=== PATIENT | male | born 1945 | race Caucasian/White ===

== ENCOUNTER 2018-05-03 17:31 | Observation (INO) | payer MEDICARE ==
[2018-05-03 18:27] LABS: Hemoglobin 11.6 g/dL (14.0-18.0); Mean Corpuscular Hemoglobin 31.7 pg (27.0-31.0); Mean Platelet Volume 7.4 fL (7.4-10.4); Platelet Count 314 thou/uL (130-400); RBC Distribution Width 12.3 % (11.5-14.5); Red Blood Cell (RBC) Count 3.66 mill/uL (4.70-6.10); White Blood Cell (WBC) Count 11.8 thou/uL (4.8-10.8)
[2018-05-03 18:32] LABS: PTT 27.8 SEC (22.9-36.1); Prothrombin Time 13.4 SEC (12.0-14.7)
[2018-05-03 18:36] LABS: ALT (SGPT) 23 U/L (8-55); AST (SGOT) 15 U/L (5-34); Albumin 4.1 g/dL (3.4-4.8); Alkaline Phosphatase 53 U/L (40-150); Anion Gap 19 mmol/L (10-20); BUN (Urea Nitrogen) 45 mg/dL (8.4-25.7); Bilirubin, Total 0.5 mg/dL (0.2-1.2); Calc. Creatinine Clearance 0 mL/min (70-130); Calcium 9.6 mg/dL (7.8-10.44); Carbon Dioxide 18 mmol/L (23-31); Chloride 98 mmol/L (98-107); Estimated GFR-MDRD 21; Globulin 2.7 g/dL (2.4-3.5); Glucose 168 mg/dL (83-110); Potassium 4.1 mmol/L (3.5-5.1); Protein, Total 6.8 g/dL (5.8-8.1); Sodium 131 mmol/L (136-145)
[2018-05-03 18:50] LABS: Band 12 % (5-11); Lymphocytes 17 % (21-51); MDiff Complete? YES; Monocytes 6 % (0-10); Neutrophil 65 % (42-75); Platelet Morphology Comment Appears Adequate
[2018-05-03 20:04] LABS: Bilirubin Negative (Negative); Blood, Urine Small (Negative); Clarity CLOUDY (Clear); Glucose, Urine (Dipstick) Negative (Negative); Leukocyte Small (Negative); Nitrite Negative (Negative); Protein, Urine (Dipstick) 30 mg/dL (Neg-Trace); Specific Gravity, Urine 1.018 (1.002-1.036); Urobilinogen 0.2 mg/dL (0.2-1.0)
[2018-05-03 20:06] LABS: Bacteria/HPF None Seen HPF (None Seen); Squamous Epithelial 0-3 HPF (0-3)
[2018-05-03 20:10] LABS: Hyaline Casts/LPF 0-3 HYALINE CAST LPF (0-3 Hyaline); Manual Microscopic Reviewed? No Path Casts Seen; Renal Epithelial None Seen HPF (0-3); Transitional Epithelial NONE SEEN HPF (0-3)
[2018-05-03] MEDS ORDERED: Ondansetron PF 4 MG/2 ML Vial IVP PRN (21:17)
[2018-05-03] MEDS ORDERED: Ondansetron ODT 4 MG TAB SL PRN (21:17)
[2018-05-03 21:19] VITALS: BMI 26.2
[2018-05-03] MEDS: Sodium Chloride 0.9% 1,000 ML IV SCH (21:32)
[2018-05-04] MEDS ORDERED: Acetaminophen 325 MG TAB PO PRN (00:47)
[2018-05-04] MEDS ORDERED: Senokot S 8.6-50 MG TAB PO PRN (00:47)
[2018-05-04] MEDS ORDERED: Bisacodyl 5 MG TAB PO PRN (00:47)
[2018-05-04] MEDS ORDERED: Zolpidem Tartrate 5 MG TAB PO PRN (00:47)
[2018-05-04] MEDS ORDERED: Calcium Carbonate 500 MG ChewTAB PO PRN (00:47)
[2018-05-04] MEDS: Sodium Chloride 0.9% 1,000 ML IV SCH ×3 (01:08→08:07)
[2018-05-04 01:52] LABS: Iron 46 ug/dL (65-175); Iron Binding Capacity, Total 189 mcg/dL (261-462)
[2018-05-04 01:56] LABS: Band 10 % (5-11); Hemoglobin 9.7 g/dL (14.0-18.0); Lymphocytes 20 % (21-51); MDiff Complete? YES; Mean Corpuscular HGB CONC 34.3 g/dL (32.0-36.0); Mean Corpuscular Hemoglobin 31.7 pg (27.0-31.0); Mean Corpuscular Volume 92.4 fL (78.0-98.0); Mean Platelet Volume 6.7 fL (7.4-10.4); Monocytes 15 % (0-10); Neutrophil 52 % (42-75); Platelet Count 242 thou/uL (130-400); RBC Distribution Width 12.2 % (11.5-14.5); Reactive Lymphocytes 3 % (0-10); Red Blood Cell (RBC) Count 3.07 mill/uL (4.70-6.10); White Blood Cell (WBC) Count 7.3 thou/uL (4.8-10.8)
[2018-05-04 07:08] LABS: Hemoglobin 9.5 g/dL (14.0-18.0); Mean Corpuscular Hemoglobin 31.5 pg (27.0-31.0); Mean Corpuscular Volume 92.8 fL (78.0-98.0); Mean Platelet Volume 7.2 fL (7.4-10.4); Platelet Count 274 thou/uL (130-400); White Blood Cell (WBC) Count 8.3 thou/uL (4.8-10.8)
[2018-05-04 07:20] LABS: Albumin 3.4 g/dL (3.4-4.8); Anion Gap 13 mmol/L (10-20); BUN (Urea Nitrogen) 32 mg/dL (8.4-25.7); BUN/Creatinine Ratio 19.88; Calc. Creatinine Clearance 49 mL/min (70-130); Calcium 8.5 mg/dL (7.8-10.44); Carbon Dioxide 20 mmol/L (23-31); Chloride 104 mmol/L (98-107); Estimated GFR-MDRD 42; Glucose 97 mg/dL (83-110); Phosphorus 2.8 mg/dL (2.3-4.7); Potassium 3.9 mmol/L (3.5-5.1); Sodium 133 mmol/L (136-145)
[2018-05-04 08:33] LABS: Band 27 % (5-11); Eosinophils 3 % (0-10); Lymphocytes 16 % (21-51); MDiff Complete? YES; Monocytes 14 % (0-10); Neutrophil 40 % (42-75); Nucleated RBC 1 % (0); Platelet Morphology Comment Appears Adequate; Polychromasia SLIGHT = 2-3 cells (100X) (0-2/hpf)
--- NOTE | 2018-05-04 10:00 | HP ---
CHIEF COMPLAINT: "Blood in my stool." HISTORY OF PRESENT ILLNESS: This is a 72-year-old male with past medical history of hypertension, presenting with a chief complaint of dark red blood in his stool for the past few days. The patient states that he went used the bathroom and he saw that there was blood in the toilet. The patient stated that he had similar episode few years back and the outcome was that he had hemorrhoids. The patient states that he is having this hemorrhoids and they are bleeding again. The patient states that during the episode of him having the blood in the stool, he felt dizzy during the time. The patient denies having colonoscopy in the past. The patient states that the doctor wanted a prostate exam on him, but he does not remember that doctor ever using a camera to look into his colon. The patient at this time, denies any dizziness. Denies nausea, vomiting, headaches, chest pain, palpitations, abdominal pain, diarrhea, hematochezia, melena. REVIEW OF SYSTEMS: All systems have been reviewed and are negative at this time. PAST MEDICAL HISTORY: Hypertension. PAST SURGICAL HISTORY: Hernia repair. FAMILY HISTORY: Reviewed and noncontributory to this visit. PSYCHIATRIC HISTORY: No psych history. SOCIAL HISTORY: The patient drinks occasionally. The patient does not use any illicit drugs and the patient does not smoke. CURRENT MEDICATIONS: The patient takes lisinopril 5 mg. ALLERGIES: NO KNOWN DRUG ALLERGIES. PHYSICAL EXAMINATION: VITAL SIGNS: The patient's blood pressure is 106/72, pulse of 96, respiratory rate of 16, temperature of 97.4, O2 saturation of 98. PERTINENT LABORATORY DATA: 1. Hemoglobin is 11.6, WBC is 11.8. 2. Urinalysis, small leukocyte esterase. 3. Sodium is 131, creatinine is 3.02, BUN is 45, glucose is 168. ASSESSMENT AND PLAN: This is a 72-year-old male being admitted for: 1. Possible gastrointestinal bleed. At this point, we have consulted GI. We will give the patient Protonix and we have ordered stool occult, which has been negative so far. We will monitor the patient's H and H. I will follow up with the patient in the a.m. to see if there is going to be any bleed. We will also order anemia panel to follow up on anemia panel. 2. Acute kidney injury likely due to prerenal in etiology. At this point, we will continue the patient on IV hydration. We will monitor the patient's creatinine closely. We will follow up on the patient's creatinine to see the trend of creatinine. 3. Hypertension, currently controlled. We will monitor the patient's blood pressure closely and we will treat accordingly. 4. Asymptomatic urinary tract infection. We will monitor the patient. 5. Deep vein thrombosis and gastrointestinal prophylaxis. Job ID: [id number]
--- NOTE | 2018-05-04 10:36 | PDOC.PN ---
- Subjective Encounter Start Date: 05/04/18 Encounter Start Time: 10:35 Subjective: diarrhea since 04/30, multiple times an hour - Objective Resuscitation Status - Order Detail: 05/04/18 00:47 Resuscitation Status Routine Resuscitation Status: FULL: Full Resuscitation Vital Signs & Weight: Vital Signs (12 hours) Temp Pulse Resp BP BP BP Pulse Ox 05/04/18 08:15 98.5 F 78 18 125/68 96 05/04/18 08:00 98.5 F 78 18 125/68 96 05/04/18 04:56 97.9 F 77 18 102/61 97 05/04/18 01:41 98.6 F 77 18 104/58 L 96 Weight Weight 183 lb Result Diagrams: 05/04/18 06:10 05/04/18 06:10 Phys Exam - Physical Examination Neck: no nodes Respiratory: clear to auscultation bilateral Cardiovascular: RRR, no significant murmur Gastrointestinal: soft, non-tender, positive bowel sounds Musculoskeletal: no edema Dx/Plan (1) Acute kidney failure Status: Acute Qualifiers: Acute renal failure type: unspecified Qualified Code(s): N17.9 - Acute kidney failure, unspecified (2) GI bleed Code(s): K92.2 - GASTROINTESTINAL HEMORRHAGE, UNSPECIFIED Status: Acute Qualifiers: GI bleed type/associated pathology: anorectal hemorrhage Qualified Code(s) : K62.5 - Hemorrhage of anus and rectum (3) Anemia, blood loss Code(s): D50.0 - IRON DEFICIENCY ANEMIA SECONDARY TO BLOOD LOSS (CHRONIC) Status: Acute (4) HTN (hypertension) Code(s): I10 - ESSENTIAL (PRIMARY) HYPERTENSION Status: Chronic Qualifiers: Hypertension type: essential hypertension Qualified Code(s): I10 - Essential (primary) hypertension - Plan GI consult, colonoscopy -: iv fluids, serial BMP -: hold ESTRELLA -: stool for C diff * .
[2018-05-04 10:53] LABS: Folate (Folic Acid) 16.3 ng/mL (7.0-31.4)
--- NOTE | 2018-05-04 10:58 | PDOC.EVN ---
Event Note - Event Note Event Note: with profuse watery diarrhea plus planned endoscopy, will need in patient status for iv fluids. patient unable to drink enough to replace lost fluids
[2018-05-04] MEDS: D5 1/2 NS w/10 mEq KCl 1,000 ML/1,000 ML BAG IV SCH ×4 (11:41→21:20)
--- NOTE | 2018-05-04 12:53 | CON ---
DATE OF CONSULTATION: HISTORY OF PRESENT ILLNESS: The patient is a 72-year-old male, who was in his normal state of health until several days prior to admission when he developed diarrhea. He said the diarrhea was accompanied by some blood, which he described as dark red. He has had hemorrhoids in the past with bleeding, but this has been more dark than in the past. He denies any abdominal pain, any weight loss, any nausea, or vomiting. He was worked up by me back in 2010. In June of 2010, he underwent a colonoscopy, which showed diverticula and small internal hemorrhoids. Biopsies were done randomly of the colon and showed lymphocytic colitis. He was seen several times over the years in 2012 and 2013, at that time electing to treat his lymphocytic colitis with Lomotil. He also was treated once with Uceris. PAST MEDICAL HISTORY: Includes hypertension. PAST SURGICAL HISTORY: Includes herniorrhaphy. SOCIAL HISTORY: He drinks on weekends. Does not smoke. FAMILY HISTORY: Negative for GI or liver disease. MEDICATIONS: Include lisinopril 10 mg p.o. daily. REVIEW OF SYSTEMS: CONSTITUTIONAL: No fever or chills. No weight loss. HEENT: Eyes, no blurred vision or double vision. ENT, no sore throat or earache. CARDIOVASCULAR: No chest pain or palpitation. PULMONARY: No shortness of breath, cough, or wheeze. GI: See above. : No hematuria or dysuria. MUSCULOSKELETAL: No joint pain or muscle weakness. SKIN: No rashes. NEUROLOGIC: No numbness or seizure activity. PHYSICAL EXAMINATION: GENERAL: Shows a well-developed, well-nourished male, in no acute distress. VITAL SIGNS: Temperature 98.5, pulse 78, respiratory rate 18, and blood pressure 125/68. HEENT: Shows poor dentition. NECK: Supple. CHEST: Clear. CARDIOVASCULAR: Regular rate and rhythm. ABDOMEN: Soft and nontender without organomegaly or masses. Bowel sounds present and normoactive. RECTAL: Deferred. EXTREMITIES: Normal. NEUROLOGIC: Nonfocal. LABORATORY DATA: Shows admission hemoglobin of 11.6, dropped to 9.5. Chemistry on admission shows sodium 131, CO2 of 18, BUN 45, creatinine 3.02, glucose 168, iron of 46, and TIBC of 189. Vitamin B12 and folate are both normal. ASSESSMENT: 1. Diarrhea-the diarrhea seems to be significant enough to give the patient prerenal azotemia. It is unclear whether this is continuation of his chronic diarrhea issue in the past with a previous diagnosis of lymphocytic colitis. 2. GI bleeding. 3. Anemia-may be secondary to GI bleeding and anemia of chronic disease. RECOMMENDATIONS: 1. EGD and colonoscopy in a.m. 2. Serial hemoglobin and hematocrit. Job ID: [id number]
[2018-05-04] MEDS ORDERED: GoLYTELY 4,000 ml Bottle PO SCH (18:00)
--- NOTE | 2018-05-05 00:15 | CON ---
DATE OF CONSULTATION: CONSULTING PHYSICIAN: Teto Hall MD REQUESTING PHYSICIAN: Dr. Malik. REASON FOR CONSULTATION: Acute kidney injury. IMPRESSION: 1. Acute on chronic kidney disease, this is likely hemodynamically mediated in the context of gastrointestinal bleed. 2. Gastrointestinal bleed. PLAN: 1. Hemodynamics support. 2. Renally dose all medications for low GFR and avoid potentially nephrotoxic agents. 3. Hopefully with the arrest of GI bleed and stabilization of hemodynamics, this acute insult on the kidney will be revised. HISTORY: A 72-year-old gentleman with history of hypertension, who presented with history of GI bleed, noted with a creatinine of 3, possibly need for Renal consultation. Denies any use of any known potentially nephrotoxic agents. PAST MEDICAL HISTORY: Significant for hypertension. REVIEW OF SYSTEMS: As documented in the body of the history. FAMILY HISTORY: No family history of kidney disease. SOCIAL HISTORY: No alcohol, no tobacco. No illicit drug use. ALLERGIES: NO KNOWN DRUG ALLERGY. PHYSICAL EXAMINATION: GENERAL: On examination, the patient was found not to be in any obvious distress. VITAL SIGNS: Noted with the following vital signs; afebrile at temperature 98.1, pulse 76, respiratory rate of 16, O2 saturations are 99% with blood pressure 126/83. HEENT: Unremarkable. Moist oral mucosa. NECK: Supple. No conjunctival injection or icterus CARDIOVASCULAR SYSTEM: First and second heart sounds were heard. RESPIRATORY: Clear to auscultation. DIGESTIVE SYSTEM: Revealed a benign abdomen with positive bowel sounds. EXTREMITIES: No peripheral edema. SKIN: No new gross rash. LYMPHATICS: No peripheral lymphadenopathy. SUMMARY: A 72-year-old gentleman who presented here with gastrointestinal bleed, noted with a creatinine of up to 3. Thank you for this consultation. We will follow with you. Job ID: [id number]
[2018-05-05] MEDS: D5 1/2 NS w/10 mEq KCl 1,000 ML/1,000 ML BAG IV SCH (10:45)
[2018-05-05] MEDS ORDERED: PROPOFOL 200 MG/20 ML VIAL ONE (10:47)
[2018-05-05] MEDS ORDERED: Promethazine HCl 25 MG/ML VIAL IM PRN (11:27)
[2018-05-05] MEDS ORDERED: Ondansetron HCl/PF 4 MG/2 ML Vial IVP PRN (11:27)
[2018-05-05] MEDS ORDERED: Promethazine HCl 25 MG/ML VIAL SLOW IVP PRN (11:27)
[2018-05-05] MEDS: DEXTROSE IV SCH ×2 (14:27→22:46)
[2018-05-05] MEDS: ADMIXTURE FEE IV SCH ×2 (14:27→22:46)
[2018-05-05] MEDS: NACL IV SCH ×2 (14:27→22:46)
[2018-05-05] MEDS: POTASSIUM CHLORIDE IV SCH ×2 (14:27→22:46)
--- NOTE | 2018-05-05 15:38 | PRG ---
DATE OF SERVICE: 05/05/2018 SUBJECTIVE: The patient is seen and examined at the bedside. He complains about some mild abdominal discomfort after the colonoscopy he went through today. OBJECTIVE: VITAL SIGNS: Blood pressure is 145/68, temperature is 97.2, respirations 16, pulse is 65, and O2 saturation is 99% on room air. HEENT: His head is atraumatic and normocephalic. Eyes are PERRLA. Sclerae nonicteric. Oral mucosa is somewhat dry. NECK: Supple. LUNGS: Clear. HEART: S1, S2 normal. No S3. No S4. ABDOMEN: Soft, mildly distended. No guarding. No masses. EXTREMITIES: No clubbing, cyanosis, or edema. NEUROLOGICAL: He follows my commands. He moves his all four extremities. There is no any motor deficit. LABORATORY DATA: None today. IMPRESSION: 1. Gastrointestinal bleed status post colonoscopy. Apparently, there is a diffuse inflammatory process in his colon. Final report from Dr. Lee's colonoscopy is still pending. 2. Anemia secondary to #1. 3. Hypertension. 4. Acute kidney injury. The patient's creatinine is improved from more than 3 to 1.61 today with IV fluids. PLAN: Plan is to continue his prednisone 40 mg once a day, placed by Dr. Lee. We will start his lisinopril 10 mg once a day, and we are going to continue his Colazal and he should be able to go home in the next 24 hours most likely. Job ID: [id number]
--- NOTE | 2018-05-05 20:15 | PRG ---
DATE OF SERVICE: 05/05/2018 SUBJECTIVE: The patient was seen and examined. Noted with following vital signs. OBJECTIVE: VITAL SIGNS: Afebrile, temperature 97.6, pulse 75, respiratory rate of 18, O2 saturation 100% with blood pressure 150/82. HEENT: Unremarkable. CARDIOVASCULAR SYSTEM: First and second heart sounds were heard. RESPIRATORY SYSTEM: Clear to auscultation. DIGESTIVE SYSTEM: Revealed a benign abdomen. Positive bowel sounds. EXTREMITIES: No peripheral edema. SKIN: No new gross rash. LYMPHATICS: No peripheral lymphadenopathy. IMPRESSION: 1. [id number] kidney disease, much improved hemodynamically-mediated injury. 2. Gastrointestinal bleed. PLAN: 1. We will continue current renal supportive measures. 2. Check renal function to evaluate for further improvement. 3. Further management to be dependent on the clinical course. Job ID: [id number]
[2018-05-06] MEDS: DEXTROSE IV SCH ×2 (07:32→13:31)
[2018-05-06] MEDS: POTASSIUM CHLORIDE IV SCH ×2 (07:32→13:31)
[2018-05-06] MEDS: NACL IV SCH ×2 (07:32→13:31)
[2018-05-06] MEDS: ADMIXTURE FEE IV SCH ×2 (07:32→13:31)
[2018-05-06] MEDS ORDERED: predniSONE 20 MG TAB PO SCH (08:00)
[2018-05-06] MEDS ORDERED: Lisinopril 10 MG TAB PO SCH (09:00)
--- NOTE | 2018-05-06 10:31 | PRG ---
DATE OF SERVICE: 05/06/2018 SUBJECTIVE: The patient is doing well today. He reports his diarrhea is slowing. He is eating well. OBJECTIVE: VITAL SIGNS: Temperature 97.6, pulse 86, respiratory rate 18, blood pressure 112/71. HEENT: Unremarkable. CHEST: Clear. CARDIOVASCULAR: Regular rate and rhythm. ABDOMEN: Soft, nontender without organomegaly or masses. LABORATORY DATA: No new laboratory. ASSESSMENT: 1. Diffuse colitis, consistent with ulcerative colitis. 2. Anemia. 3. Renal insufficiency - improving. RECOMMENDATIONS: 1. Switch the patient over to oral prednisone. 2. Continue mesalamine. 3. Have the patient follow up with GI in the outpatient setting. Job ID: [id number]
[2018-05-06 12:37] VITALS: BP 114/70; TEMP 97.9
[2018-05-06] MEDS ORDERED: Cyanocobalamin 1000 MCG/ML VIAL IM SCH (12:45)
[2018-05-06 14:43] LABS: Anion Gap 15 mmol/L (10-20); BUN (Urea Nitrogen) 12 mg/dL (8.4-25.7); Calc. Creatinine Clearance 69 mL/min (70-130); Calcium 8.4 mg/dL (7.8-10.44); Carbon Dioxide 17 mmol/L (23-31); Chloride 109 mmol/L (98-107); Estimated GFR-MDRD 64; Glucose 102 mg/dL (83-110); Potassium 4.3 mmol/L (3.5-5.1); Sodium 137 mmol/L (136-145)
--- NOTE | 2018-05-06 18:06 | DIS ---
DATE OF ADMISSION: 05/03/2018 DATE OF DISCHARGE: 05/06/2018 FINAL DIAGNOSES: 1. Colitis secondary to Campylobacter. 2. Anemia secondary to colitis secondary to Campylobacter, gastrointestinal blood loss. 3. Hypertension. 4. Acute kidney injury, resolved. RISK CONTROL SPECIALIST: 1. Gregg Lee MD. 2. Teto Hall MD. PROCEDURE: Colonoscopy. HOSPITAL COURSE: The patient is a 72-year-old male, who was admitted to the hospital with complaints of dark red blood in his stool for the past few days prior to this hospitalization. He felt that maybe this was related to his hemorrhoids, but he felt dizzy. He never had any colonoscopy in the past. Denied any nausea, vomiting, headache, chest pain, palpitation, abdominal pain, diarrhea, or hematochezia. In the emergency room, his blood pressure was 106/72, pulse 96, and respiratory rate was 16. His hemoglobin was 11.6. Urinalysis showed small leukocyte esterase. Sodium 131, creatinine 3.02, BUN was 45, and glucose was 168. He got admitted to the hospital for possible gastrointestinal bleeding. GI was consulted. He was started on Protonix and the stool sample was sent for additional testing. He received IV hydration. His creatinine was down to 1.6 the next day. He was seen by Dr. Lee for GI evaluation, who scoped him and he found diffuse process in his colon suggestive of ulcerative colitis and he was started on steroids for that, then we received the results on his stool, which showed Clostridium difficile antigen and toxins were negative. Rapid parasite screen was negative for Giardia and Cryptosporidium, but it came back positive for Campylobacter antigen assay. The patient was given 1 dose of azithromycin 1 g and his steroids were stopped. His followup creatinine level came back down to 1.13, so he was significantly rehydrated. His vitamin B12 came back at 275, so he received 1 mg of vitamin B12 IM. His folate was 16.3, which was within normal limits and iron and TIBC were suggestive of anemia of chronic disease. He is doing well. His blood pressure is 114/70, pulse is 82, temperature is 97.9, respirations 18, and O2 saturation is 98% on room air. He is stable. He is ambulating without any dizziness. He is discharged home with recommendation to stay on heart healthy diet, low salt for his blood pressure. Activities as tolerated. He will follow up with primary care physician in 1 week and he will call Dr. Lee's office whether he needs to follow up with him. At the time of discharge his medications only lisinopril 10 mg once a day, that is the same medication he was on before hospitalization. He will take vitamin B12 orally [id number] and he will follow up with primary doctor for the check of the vitamin B12 level. The time spent on this discharge is less than 30 minutes. Job ID: [id number]
[2018-05-07] MEDS ORDERED: predniSONE 20 MG TAB PO SCH (08:00)
[2018-05-07] MEDS ORDERED: Azithromycin 200 MG/5 ML Oral Suspension PO ONE (10:30)
--- NOTE | 2018-05-08 11:44 | OP ---
DATE OF PROCEDURE: 05/05/2018 PREOPERATIVE DIAGNOSES: Chronic diarrhea, gastrointestinal bleeding, and anemia. DESCRIPTION OF PROCEDURE: After informed consent was obtained, the patient was placed in the left lateral decubitus position. Anesthesia was administered per the Anesthesia Department. Forward-viewing endoscope was inserted into the esophagus under direct visualization with ease and passed to the second portion of the duodenum with ease. The second portion of duodenum and duodenal bulb were normal except for single nodule there in the duodenal bulb, second portion. This nodule was biopsied. Also, random biopsies were taken from the second portion of the duodenum. The duodenal bulb was normal. The pylorus, antrum, body, fundus, and cardia were normal except for diffuse atrophic gastritis. The esophagus was normal throughout. ASSESSMENT: 1. Diffuse atrophic gastritis. 2. Duodenal nodule in the second portion - status post biopsy. RECOMMENDATIONS: 1. Await histopathology. 2. Proceed with colonoscopy. DESCRIPTION OF PROCEDURE: After informed consent was obtained, the patient was placed in the left lateral decubitus position. Anesthesia was administered per the Anesthesia Department. Forward-viewing endoscope was inserted into the rectum. After perianal inspection and rectal exam were normal, then passed to the cecum with ease. The cecum, ileocecal valve, and appendiceal orifice were normal. The terminal ileum could not be intubated. The prep was good, but not excellent. Random biopsies were taken both of the left and right colon because of diffuse colitis. This consisted of erythema, some granularity, and loss of vascularity. Left-sided diverticula were noted. There were 2 small polyps in the rectum. These were removed with hot snare polypectomy. Internal and external hemorrhoids were noted. ASSESSMENT: 1. Diffuse colitis - suspect ulcerative colitis. 2. Left-sided diverticulosis coli. 3. Two small rectal polyps - status post polypectomy. 4. Internal and external hemorrhoids. 5. Otherwise normal colonoscopy. RECOMMENDATIONS: 1. Await histopathology. 2. Trial prednisone. 3. Begin Colazal. 4. Stool for ova and parasites and culture and sensitivity. Job ID: [id number]
== END 2018-05-06 16:45 | disposition home or self-care (01) ==
LOC: ERS 17:31 → T4-A 21:08
PROVIDERS: ADMIT Internal Medicine; ATTEND Internal Medicine
PROC: 0DBP8ZX Excision of Rectum, Via Natural or Artificial Opening Endoscopic, Diagnostic (ICD-10-PCS; principal; 2018-05-05)
PROC: 0DBG8ZX Excision of Left Large Intestine, Via Natural or Artificial Opening Endoscopic, Diagnostic (ICD-10-PCS; 2018-05-05)
PROC: 0DBF8ZX Excision of Right Large Intestine, Via Natural or Artificial Opening Endoscopic, Diagnostic (ICD-10-PCS; 2018-05-05)
PROC: 0DB98ZX Excision of Duodenum, Via Natural or Artificial Opening Endoscopic, Diagnostic (ICD-10-PCS; 2018-05-05)
DX: A04.5 Campylobacter enteritis (principal); D50.0 Iron deficiency anemia secondary to blood loss (chronic); K29.41 Chronic atrophic gastritis with bleeding; K31.89 Other diseases of stomach and duodenum; K64.4 Residual hemorrhoidal skin tags; K64.8 Other hemorrhoids; K57.31 Diverticulosis of large intestine without perforation or abscess with bleeding; K62.1 Rectal polyp; I12.9 Hypertensive chronic kidney disease with stage 1 through stage 4 chronic kidney disease, or unspecified chronic kidney disease; N18.9 Chronic kidney disease, unspecified; N17.9 Acute kidney failure, unspecified; N39.0 Urinary tract infection, site not specified; Z79.899 Other long term (current) drug therapy
CPT/HCPCS: 43239; 45380; 45385; 80048; 80053; 80069; 82274 ×2; 82607; 82746; 83540; 83550; 85025 ×3; 85610; 85730; 86850; 86900; 86901; 87045; 87046; 87086; 87324; 87328; 87329; 87449 ×2; 87899 ×2; 88305; 96361 ×4; 96365; 96366 ×2; 96372; 96375; 96376; 99285; G0378 ×3; 36415; 51798; 81003; 81015; 96360; J2704; J2920; J3420; J7042; J8499

== ENCOUNTER 2019-03-15 13:19 | Outpatient (CLI) | payer MEDICARE ==
[2019-03-15] MEDS ORDERED: Iopamidol-370 76% 500 ML 1 ML ONE (13:41)
--- NOTE | 2019-03-15 15:48 | CT ---
CT OF THE ABDOMEN AND PELVIS WITH AND WITHOUT IV CONTRAST INDICATION: Hematuria TECHNIQUE: Noncontrast CT of the abdomen and pelvis was performed. Postcontrast images were obtained in the nephrographic phase and delayed phase. Axial and coronal reformatted images were constructed from the raw data. COMPARISON: CT of the thorax dated November 01, 2005 FINDINGS: ABDOMEN: Lung bases: There is bronchiectasis with reticular nodularity involving the posterior medial right lo wer lobe. Liver: There is a very tiny hypodensity within the left hepatic lobe likely reflecting a small cyst. Gallbladder: Cholelithiasis Pancreas: Normal. Adrenal glands: Normal. Spleen: Normal. Kidneys and ureters: There is a 2.7 mm stone involving inferior pole of left kidney. No right renal c alculus is evident. No ureteral calculus is identified. No solid renal lesion is demonstrated. Very tiny hypodensities are present within both kidneys, too small to fully characterize but statistically likely reflective of small cysts. No gross urothelial lesion is identified. Vasculature: There are mild vascular calcifications seen involving the visualized vasculature. Lymph nodes:No lymphadenopathy. Free fluid in abdomen:No free fluid is evident. PELVIS: Small and large bowel: There are scattered colonic diverticula without evidence of active diverticuli tis. Appendix:Normal Bladder: Normal. Rectal and perirectal soft tissues:Normal. Reproductive structures: The prostate is enlarged measuring 4.9 cm. Free fluid in pelvis: No free fluid is evident. Lymphadenopathy pelvis: No lymphadenopathy is evident. Osseous structures: Small bone island is present within the L4 vertebral body. There is grade 1 anter olisthesis of L3 on L4 which is likely degenerative. No acute fracture or subluxation demonstrated. There is scattered degenerative and osteoarthritic changes. Soft tissues:Normal. IMPRESSION: 1. Left nephrolithiasis. No suspicious renal or gross urothelial lesion identified. 2. Bronchiectasis and reticular nodularity of the posterior medial right lower lobe suspicious for mi ld respiratory bronchiolitis. 3. Prostate enlargement 4. Colonic diverticulosis 5. Cholelithiasis
== END 2019-03-15 13:20 | disposition home or self-care (01) ==
LOC: BICCT 13:19
PROVIDERS: ATTEND Urology
DX: R97.20 Elevated prostate specific antigen [PSA] (principal); R31.29 Other microscopic hematuria; N40.0 Benign prostatic hyperplasia without lower urinary tract symptoms; N20.0 Calculus of kidney; K80.20 Calculus of gallbladder without cholecystitis without obstruction; K57.30 Diverticulosis of large intestine without perforation or abscess without bleeding; J47.9 Bronchiectasis, uncomplicated
CPT/HCPCS: 36415; 74178; 81001; 82565; 83036; 87086; Q9967

== ENCOUNTER 2023-02-09 20:45 | Inpatient (IN) | payer MEDICARE ==
[2023-02-09] MEDS ORDERED: traMADol HCl 50 MG TAB PO PRN (23:02)
[2023-02-09] MEDS ORDERED: Morphine 4 MG/ML VIAL SLOW IVP PRN (23:03)
[2023-02-09] MEDS ORDERED: Morphine 2 MG/ML VIAL SLOW IVP PRN (23:03)
[2023-02-09] MEDS ORDERED: Acetaminophen 500 MG TAB PO SCH (23:15)
[2023-02-09] MEDS ORDERED: traMADol HCl 50 MG TAB PO SCH (23:15)
[2023-02-09] MEDS ORDERED: Ibuprofen 200 MG TAB PO SCH (23:15)
[2023-02-10 00:16] VITALS: BMI 25.0
[2023-02-10] MEDS: Ibuprofen 200 MG TAB PO SCH ×3 (00:58→17:12)
[2023-02-10] MEDS ORDERED: traMADol HCl 50 MG TAB PO SCH (01:00)
[2023-02-10] MEDS ORDERED: Acetaminophen 500 MG TAB PO SCH (01:00)
[2023-02-10] MEDS: traMADol HCl 50 MG TAB PO SCH ×3 (06:35→18:19)
[2023-02-10] MEDS: Acetaminophen 500 MG TAB PO SCH ×3 (06:35→18:19)
[2023-02-10] MEDS ORDERED: Ipratropium/Albuterol 3 ML NEB NEB PRN (07:09)
[2023-02-10] MEDS ORDERED: Ondansetron PF 4 MG/2 ML Vial IVP PRN (07:09)
[2023-02-10] MEDS ORDERED: Sodium Chloride 0.9% 1,000 ML IV SCH (07:15)
[2023-02-10 08:03] LABS: #Basophils 0.1 thou/uL (0.0-0.2); #Eosinphils 0.7 thou/uL (0.0-0.7); #Monocytes 0.7 thou/uL (0.11-0.59); #Neutrophils 4.1 thou/uL (1.40-6.50); %Lymphocytes 23.3 % (21.0-51.0); %Neutrophils 56.4 % (42.0-75.0); Hematocrit 37.8 % (42.0-52.0); Hemoglobin 12.6 g/dL (14.0-18.0); Mean Corpuscular HGB CONC 33.3 g/dL (32.0-36.0); Mean Corpuscular Hemoglobin 31.2 pg (27.0-31.0); Mean Corpuscular Volume 93.6 fl (78.0-98.0); Mean Platelet Volume 10.3 fL (7.4-10.4); Platelet Count 175 10x3/uL (130-400); RBC Distribution Width 14.3 % (11.5-14.5); Red Blood Cell (RBC) Count 4.04 mill/uL (4.70-6.10); White Blood Cell (WBC) Count 7.2 10x3/uL (4.8-10.8)
[2023-02-10 08:20] LABS: Prothrombin Time 13.9 sec (12.0-14.7)
[2023-02-10 08:21] LABS: PTT 30.4 sec (22.9-36.1)
[2023-02-10] MEDS ORDERED: CEFAZOLIN 2 GM in Sodium Chloride 0.9% 100 ML IVPB SCH (08:30)
[2023-02-10 08:32] LABS: Anion Gap 12 mmol/L (10-20); BUN (Urea Nitrogen) 12 mg/dL (8.4-25.7); Calc. Creatinine Clearance 72 mL/min (70-130); Calcium 9.2 mg/dL (7.8-10.44); Carbon Dioxide 27 mmol/L (23-31); Chloride 105 mmol/L (98-107); Estimated GFR 90; Glucose 88 mg/dL (83-110); Potassium 3.6 mmol/L (3.5-5.1); Sodium 140 mmol/L (136-145)
[2023-02-10] MEDS: Famotidine/PF 20 mg/2ml Vial SLOW IVP SCH ×2 (08:50→21:24)
[2023-02-10] MEDS ORDERED: FLU VACC QS2023(65UP)/MF59C/PF 60 MCG/0.5 ML SYRINGE IM ONE (09:00)
[2023-02-10] MEDS ORDERED: CEFAZOLIN 2 GM VIAL ONE (12:29)
[2023-02-10] MEDS ORDERED: Sodium Chloride 0.9% 100 ML ONE (12:29)
[2023-02-10] MEDS ORDERED: Famotidine/PF 20 mg/2ml Vial ONE (12:50)
[2023-02-10] MEDS ORDERED: Vasopressin 20 UNITS/ML VIAL ONE (12:50)
[2023-02-10] MEDS ORDERED: fentaNYL 50 mcg/mL 1 mL Vial ONE ×5 (12:50→15:48)
[2023-02-10] MEDS ORDERED: SUGAMMADEX SODIUM 200 MG/2 ML VIAL ONE (13:06)
[2023-02-10] MEDS ORDERED: Sevoflurane 250 ML INH ANEST BOTTLE ONE (13:06)
[2023-02-10] MEDS ORDERED: Ondansetron PF 4 MG/2 ML Vial ONE (13:19)
[2023-02-10] MEDS ORDERED: Rocuronium Bromide 10 MG/ML (10ML VIAL) ONE (13:19)
[2023-02-10] MEDS ORDERED: Dexamethasone 20 MG/5 ML VIAL ONE (13:19)
[2023-02-10] MEDS ORDERED: Lidocaine 1% PF 5 ML VIAL ONE (13:19)
[2023-02-10] MEDS ORDERED: ePHEDrine Sulfate 50 MG/10 ML VIAL ONE (13:19)
[2023-02-10] MEDS ORDERED: Ketorolac Tromethamine 30 MG/ML VIAL ONE (13:19)
[2023-02-10] MEDS ORDERED: PROPOFOL 200 MG/20 ML VIAL ONE (13:19)
[2023-02-10] MEDS ORDERED: Ondansetron HCl/PF 4 MG/2 ML Vial IVP PRN (14:52)
[2023-02-10] MEDS ORDERED: Promethazine HCl 25 MG/ML VIAL IM PRN (14:52)
[2023-02-10] MEDS: CEFAZOLIN 2 GM in Sodium Chloride 0.9% 100 ML IVPB SCH (21:24)
[2023-02-11] MEDS: Acetaminophen 500 MG TAB PO SCH ×5 (01:00→23:48)
[2023-02-11] MEDS: Ibuprofen 200 MG TAB PO SCH ×4 (01:02→23:47)
[2023-02-11] MEDS: traMADol HCl 50 MG TAB PO SCH ×5 (01:02→23:48)
[2023-02-11] MEDS: CEFAZOLIN 2 GM in Sodium Chloride 0.9% 100 ML IVPB SCH ×2 (05:29→14:44)
[2023-02-11 05:35] LABS: #Monocytes 0.7 thou/uL (0.11-0.59); #Neutrophils 8.5 thou/uL (1.40-6.50); %Basophils 0.3 % (0.0-1.0); %Eosinophils 0.2 % (0.0-10.0); %Lymphocytes 7.2 % (21.0-51.0); %Monocytes 7.1 % (0.0-10.0); %Neutrophils 84.9 % (42.0-75.0); Hematocrit 36.6 % (42.0-52.0); Hemoglobin 12.1 g/dL (14.0-18.0); Mean Corpuscular HGB CONC 33.1 g/dL (32.0-36.0); Mean Corpuscular Hemoglobin 30.6 pg (27.0-31.0); Mean Corpuscular Volume 92.4 fl (78.0-98.0); Mean Platelet Volume 10.9 fL (7.4-10.4); Platelet Count 199 10x3/uL (130-400); RBC Distribution Width 13.9 % (11.5-14.5); Red Blood Cell (RBC) Count 3.96 mill/uL (4.70-6.10)
[2023-02-11 05:57] LABS: Anion Gap 13 mmol/L (10-20); BUN (Urea Nitrogen) 11 mg/dL (8.4-25.7); Calc. Creatinine Clearance 73 mL/min (70-130); Carbon Dioxide 23 mmol/L (23-31); Chloride 106 mmol/L (98-107); Estimated GFR 90; Glucose 114 mg/dL (83-110); Potassium 4.4 mmol/L (3.5-5.1); Sodium 138 mmol/L (136-145)
[2023-02-11] MEDS: Famotidine 20 MG TAB PO SCH ×2 (08:44→21:20)
[2023-02-11] MEDS: Aspirin 81 mg Enteric Coated Tablet PO SCH ×2 (08:44→21:20)
[2023-02-11] MEDS ORDERED: Lisinopril 10 MG TAB PO SCH (11:30)
[2023-02-11] MEDS ORDERED: HumaLOG 300 UNITS/3 ML VIAL SC PRN (11:32)
[2023-02-11] MEDS ORDERED: Glucagon 1 MG/ML KIT IM PRN (11:32)
[2023-02-11] MEDS ORDERED: Dextrose 5% in Water 1,000 ML IV PRN (11:32)
[2023-02-11] MEDS ORDERED: Dextrose 50% Abboject 50 ML SYRINGE SLOW IVP PRN (11:32)
[2023-02-12] MEDS: traMADol HCl 50 MG TAB PO SCH ×2 (06:09→12:41)
[2023-02-12] MEDS: Acetaminophen 500 MG TAB PO SCH ×2 (06:09→12:43)
[2023-02-12] MEDS ORDERED: Lisinopril 10 MG TAB PO SCH (09:00)
[2023-02-12] MEDS: Famotidine 20 MG TAB PO SCH (09:20)
[2023-02-12] MEDS: Aspirin 81 mg Enteric Coated Tablet PO SCH (09:21)
[2023-02-12] MEDS: Ibuprofen 200 MG TAB PO SCH ×2 (09:21→17:15)
[2023-02-12 13:35] VITALS: BP 166/71; TEMP 99.4
== END 2023-02-12 17:15 | disposition home or self-care (01) | DRG 522 ==
LOC: SJJU 22:40
PROVIDERS: ADMIT Surgery; ATTEND Surgery
PROC: 0SRR0JZ Replacement of Right Hip Joint, Femoral Surface with Synthetic Substitute, Open Approach (ICD-10-PCS; principal; 2023-02-10)
DX: S72.011A Unspecified intracapsular fracture of right femur, initial encounter for closed fracture (principal); I10 Essential (primary) hypertension; E11.9 Type 2 diabetes mellitus without complications; W19.XXXA Unspecified fall, initial encounter; Y92.9 Unspecified place or not applicable; Z98.890 Other specified postprocedural states
CPT/HCPCS: 36415; 36416; 72170; 80048; 85025; 85610; 85730; 86850; 86900; 86901; C1713; C1776; J1100; J1885; J2405; J2704; J3010; J3490; J7050; S0028

== ENCOUNTER 2023-03-15 16:28 | Emergency (ER) | payer MEDICARE | END 2023-03-15 18:02 | disposition home or self-care (01) | LOC: ERS 16:28 | DX: S71.011D Laceration without foreign body, right hip, subsequent encounter (principal); I10 Essential (primary) hypertension; E11.9 Type 2 diabetes mellitus without complications; Z79.84 Long term (current) use of oral hypoglycemic drugs; Z79.899 Other long term (current) drug therapy ==